=== PATIENT | female | born 1950 | race Caucasian/White ===

== ENCOUNTER → 2020-12-20 | Outpatient (CLI) | payer MEDICARE ==
--- NOTE | 2020-12-20 12:21 | XR ---
EXAMINATION TYPE: XR wrist complete LT DATE OF EXAM: 12/20/2020 CLINICAL HISTORY: Pain worse base of thumb for 6 months TECHNIQUE: Frontal, lateral and oblique images of the left wrist are obtained. COMPARISON: None FINDINGS: [place] osseous structures are demineralized. Moderate to advanced narrowing at base of firs t metacarpal with mild subchondral cystic change. Moderate triscaphe joint space narrowing. No acute fracture or dislocation. Overlying soft tissue is unremarkable. . IMPRESSION: As above.
== END | disposition home or self-care (01) ==
LOC: RADXRYALE 12:04
PROVIDERS: ATTEND Internal Medicine
DX: M25.832 Other specified joint disorders, left wrist (principal); M85.642 Other cyst of bone, left hand

== ENCOUNTER → 2022-01-14 | Outpatient (CLI) | payer MEDICARE ==
--- NOTE | 2022-01-14 15:25 | XR ---
EXAMINATION TYPE: XR shoulder complete 3 views LT DATE OF EXAM: 01/14/2022 Comparison: None Clinical History: 71 year old female [id number] LT SHLD PAIN Findings: There is at least moderate degenerative change of the glenohumeral joint with joint space narrowing a nd marginal spurring. Loose bodies are present measuring up to 1.7 cm along the axillary recess and 9 mm subcoracoid recess. On the AP internal rotation view, there may be an additional 1 cm loose body interposed between the humeral head and acromion. Somewhat rounded configuration to the greater tuber osity. No acute fracture, subluxation, dislocation. Hazy density mid and lower left lung may be due t o underpenetration. Impression: 1. Moderate glenohumeral joint OA. Loose bodies measuring up to 1.7 cm. 2. Given the rounded appearance to the greater tuberosity, consider a possible underlying full-thickn ess rotator cuff tear. 3. Hazy density mid and lower left lung may be due to underpenetration. If any respiratory symptoms, dedicated chest radiograph can be obtained.
== END | disposition home or self-care (01) ==
LOC: RADXRYALE 13:18
PROVIDERS: ATTEND Internal Medicine
DX: M19.012 Primary osteoarthritis, left shoulder (principal)

== ENCOUNTER → 2022-01-23 | Outpatient (CLI) | payer MEDICARE ==
--- NOTE | 2022-01-23 15:05 | XR ---
EXAMINATION TYPE: XR chest 2V DATE OF EXAM: 01/23/2022 3:00 PM COMPARISON: None TECHNIQUE: XR chest 2V Frontal and lateral views of the chest. CLINICAL INDICATION:Female, 71 years old with history of [id number] COUGH; FINDINGS: Lungs/Pleura: There is no evidence of pleural effusion, focal consolidation, or pneumothorax. Pulmonary vascularity: Unremarkable. Heart/mediastinum: Cardiomediastinal silhouette is unremarkable. 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 No acute osseous abnormality. Other: Surgical clips in upper abdomen. IMPRESSION: No acute cardiopulmonary disease/process.
== END | disposition home or self-care (01) ==
LOC: RADXRYALE 14:48
PROVIDERS: ATTEND Internal Medicine
DX: R05.9 Cough, unspecified (principal)
CPT/HCPCS: 71046